=== PATIENT | male | born 1955 | race Caucasian/White ===

== ENCOUNTER 2017-04-18 15:00 | Outpatient (RCR) | payer OTHER | END 2017-04-24 | disposition home or self-care (01) | LOC: PTY 15:00 | DX: M96.1 Postlaminectomy syndrome, not elsewhere classified (principal); M51.36 Other intervertebral disc degeneration, lumbar region ==

== ENCOUNTER 2017-05-14 15:30 | Outpatient (RCR) | payer OTHER | END 2017-05-25 | disposition home or self-care (01) | LOC: PTY 15:30 | DX: M96.1 Postlaminectomy syndrome, not elsewhere classified (principal); M51.36 Other intervertebral disc degeneration, lumbar region | CPT/HCPCS: 97110; 97140; G0283 ==

== ENCOUNTER 2018-12-01 20:15 | Inpatient (IN) | payer OTHER ==
[~2018-12-01] VITALS: Ht 170.2 cm; Wt 92.5 kg
[2018-12-01 20:19] VITALS: BP 113/94
--- NOTE | 2018-12-01 20:19 | NUR ---
ED Nurse Note: PT BROUGHT IN BY 67 FROM HOME DUE TO SOB SINCE THIS MORNING. HX OF HEART FAILURE AND ASTHMA. ALBUTEROL 0.5 GIVEN EN ROUTE. AAO X4, FOLLOWS COMMANDS WITH SOB AT REST. DIMINISHED LUNG SOUNDS AUSCULTATED. SKIN IS PALE.
[2018-12-01] MEDS ORDERED: Morphine Sulfate 4mg/ml Inj (IV USE ONLY) IVP ONE (20:30)
[2018-12-01] MEDS ORDERED: SINGULAIR (20:31)
[2018-12-01] MEDS ORDERED: JENUVIA (20:31)
[2018-12-01] MEDS ORDERED: LASIX (20:31)
[2018-12-01] MEDS ORDERED: METFORMIN (20:31)
--- NOTE | 2018-12-01 20:42 | NUR ---
RESPIRATORY NOTE: Called to ED to place pt on BiPAP. Pt is alert/awake, follows commands. Pt now on BiPAP 16/, back up rate 16, 30%, per MD Shruti order. Pt on a Facial mask, skin intact, no redness/breakdowns noted upon placing on machine. Foam tape applied on pt's nosebridge/cheeks to prevent any mask irritations. No tape applied on chin as pt has a haque. B/S homer. diminished, nonproductive cough. BiPAP plugged into red outlet, alarms on & audible. Pt tolerating BiPAP well, in no apparent distress at this time. Will continue to monitor pt.
--- NOTE | 2018-12-01 20:54 | Emergency Room Report ---
History of Present Illness General Chief Complaint: Dyspnea/Respdistress Source: Patient, EMS Present Illness HPI Patient presents with complaints of shortness of breath Ongoing and worsening over the past several days patient reports several recent hospitalizations He also has a pacemaker and reports history of CHF Patient also reports chronic pain syndrome from previous low back injuries And has been out of his pain medication worsening his symptoms denies any Chest pain denies any vomiting denies any recent travel denies any dysuria frequency Allergies: Coded Allergies: No Known Allergies (Unverified , 03/28/17) Patient History Past Medical History: see triage record Pertinent Family History: none Reviewed Nursing Documentation: PMH: Agreed; PSxH: Agreed Nursing Documentation-PMH Hx Hypertension: Yes Hx Pacemaker: Yes - Replaced two weeks ago Hx Asthma: Yes Hx Diabetes: Yes Review of Systems All Other Systems: negative except mentioned in HPI Physical Exam Vital Signs Date Time Temp Pulse Resp B/P (MAP) Pulse Ox O2 Delivery O2 Flow Rate FiO2 12/01/18 20:09 98.4 90 20 142/88 (106) 94 Room Air 12/01/18 20:38 30 Sp02 EP Interpretation: reviewed, normal General Appearance: mild distress - Short of breath Head: normocephalic, atraumatic Eyes: bilateral eye PERRL, bilateral eye EOMI ENT: hearing grossly normal, normal pharynx, TMs + canals normal, uvula midline Neck: full range of motion, supple, no meningismus, no bony tend Respiratory: no respiratory distress, no retraction, no accessory muscle use, crackles - bilaterally Cardiovascular #1: normal peripheral pulses, regular rate, rhythm, no murmur Gastrointestinal: normal bowel sounds, non tender, soft, no mass, no organomegaly, non-distended, no guarding, no hernia, no pulsatile mass, no rebound Genitourinary: no CVA tenderness Musculoskeletal: swelling - bilaterally pitting Neurologic: oriented x3, responsive, metaphysicist III-XII nml as tested, motor strength/ tone normal, sensory intact Psychiatric: mood/affect normal Skin: other - Edema Lymphatic: normal inspection, no adenopathy Procedures Critical Care Time Critical Care Time 40 minutes for initial critical presentation concerning findings for respiratory arrest cardiac arrest not including any procedural time Medical Decision Making Diagnostic Impression: Primary Impression: Acute CHF ER Course Patient is a fairly complex patient with multiple differential to consideration including but not limited to cardiac cardiopulmonary and vascular emergencies Patient's chest x-ray shows increased pulmonary congestion upon arrival was placed on BiPAP as well given the clinical examination IV diuretics are performed patient is improving and requires further inpatient care Labs Test 12/01/18 20:25 12/01/18 20:45 12/02/18 06:10 12/02/18 14:00 White Blood Count 7.2 K/UL (4.8-10.8) 5.8 K/UL (4.8-10.8) Red Blood Count 3.82 M/UL (4.70-6.10) 3.51 M/UL (4.70-6.10) Hemoglobin 9.4 G/DL (14.2-18.0) 8.5 G/DL (14.2-18.0) Hematocrit 31.5 % (42.0-52.0) 28.8 % (42.0-52.0) Mean Corpuscular Volume 82 FL (80-99) 82 FL (80-99) Mean Corpuscular Hemoglobin 24.7 PG (27.0-31.0) 24.3 PG (27.0-31.0) Mean Corpuscular Hemoglobin Concent 29.9 G/DL (32.0-36.0) 29.6 G/DL (32.0-36.0) Red Cell Distribution Width 17.3 % (11.6-14.8) 18.2 % (11.6-14.8) Platelet Count 276 K/UL (150-450) 235 K/UL (150-450) Mean Platelet Volume 6.0 FL (6.5-10.1) 6.1 FL (6.5-10.1) Neutrophils (%) (Auto) 76.3 % (45.0-75.0) 63.5 % (45.0-75.0) Lymphocytes (%) (Auto) 12.5 % (20.0-45.0) 20.6 % (20.0-45.0) Monocytes (%) (Auto) 6.1 % (1.0-10.0) 8.2 % (1.0-10.0) Eosinophils (%) (Auto) 3.8 % (0.0-3.0) 6.6 % (0.0-3.0) Basophils (%) (Auto) 1.3 % (0.0-2.0) 1.1 % (0.0-2.0) Prothrombin Time 12.4 SEC (9.30-11.50) Prothromb Time International Ratio 1.2 (0.9-1.1) Activated Partial Thromboplast Time 35 SEC (23-33) Sodium Level 137 MMOL/L (136-145) 142 MMOL/L (136-145) Potassium Level 3.8 MMOL/L (3.5-5.1) 3.7 MMOL/L (3.5-5.1) Chloride Level 99 MMOL/L (98-107) 103 MMOL/L (98-107) Carbon Dioxide Level 29 MMOL/L (21-32) 35 MMOL/L (21-32) Anion Gap 9 mmol/L (5-15) 4 mmol/L (5-15) Blood Urea Nitrogen 28 mg/dL (7-18) 28 mg/dL (7-18) Creatinine 1.6 MG/DL (0.55-1.30) 1.7 MG/DL (0.55-1.30) Estimat Glomerular Filtration Rate 43.7 mL/min (>60) 40.8 mL/min (>60) Glucose Level 160 MG/DL (74-106) 139 MG/DL (74-106) Calcium Level 9.3 MG/DL (8.5-10.1) 8.9 MG/DL (8.5-10.1) Total Bilirubin 0.8 MG/DL (0.2-1.0) 0.6 MG/DL (0.2-1.0) Aspartate Amino Transf (AST/SGOT) 21 U/L (15-37) 19 U/L (15-37) Alanine Aminotransferase (ALT/SGPT) 9 U/L (12-78) 10 U/L (12-78) Alkaline Phosphatase 147 U/L (46-116) 125 U/L (46-116) Total Creatine Kinase 160 U/L (26-308) Creatine Kinase MB 2.8 NG/ML (0.0-3.6) Creatine Kinase MB Relative Index 1.7 Troponin I 0.048 ng/mL (0.000-0.056) 0.046 ng/mL (0.000-0.056) 0.028 ng/mL (0.000-0.056) Pro-B-Type Natriuretic Peptide 5679 pg/mL (0-125) Total Protein 7.9 G/DL (6.4-8.2) 6.9 G/DL (6.4-8.2) Albumin 3.9 G/DL (3.4-5.0) 3.3 G/DL (3.4-5.0) Globulin 4.0 g/dL 3.6 g/dL Albumin/Globulin Ratio 1.0 (1.0-2.7) 0.9 (1.0-2.7) Lipase 111 U/L (73-393) Urine Opiates Screen Negative (NEGATIVE) Urine Barbiturates Screen Negative (NEGATIVE) Phencyclidine (PCP) Screen Negative (NEGATIVE) Urine Amphetamines Screen Negative (NEGATIVE) Urine Benzodiazepines Screen Negative (NEGATIVE) Urine Cocaine Screen Negative (NEGATIVE) Urine Marijuana (THC) Screen Negative (NEGATIVE) Triglycerides Level 39 MG/DL (30-150) Cholesterol Level 90 MG/DL (< 200) LDL Cholesterol 48 mg/dL (<100) HDL Cholesterol 35 MG/DL (40-60) Cholesterol/HDL Ratio 2.6 (3.3-4.4) Prostate Specific Antigen 1.02 ng/mL (0.13-4.0) Thyroid Stimulating Hormone (TSH) 1.788 uiU/mL (0.358-3.740) Free Thyroxine 1.18 NG/DL (0.76-1.46) Free Triiodothyronine 2.0 pg/mL (2.3-4.2) Test 12/02/18 21:50 Troponin I 0.027 ng/mL (0.000-0.056) Digoxin Level 0.9 NG/ML (0.5-2.0) EKG Diagnostic Results Rate: normal, other Rhythm: other - paced ST Segments: no acute changes Rhythm Strip Diag. Results EP Interpretation: yes Rate: 60 Rhythm: other - paced, prolonged qrs Chest X-Ray Diagnostic Results Chest X-Ray Diagnostic Results : Chest X-Ray Ordered: Yes # of Views/Limited/Complete: 1 View Indication: Shortness of Breath EP Interpretation: Yes Interpretation: no consolidation, no effusion, other - Pulmonary congestion cardiomegaly Impression: Other - Acute CHF Electronically Signed by: Ali Jamehdor, DO Last Vital Signs Date Time Temp Pulse Resp B/P (MAP) Pulse Ox O2 Delivery O2 Flow Rate FiO2 12/01/18 20:40 30 12/01/18 20:40 97 21 100 Facial 12/01/18 20:19 98.4 113/94 Status: improved Disposition: ADMITTED INPATIENT Condition: Serious Referrals: [facility] (PCP) Magali Bahena DO Dec 01, 2018 20:54
--- NOTE | 2018-12-01 20:55 | NUR ---
ED Nurse Note: COLLECTED BLOOD SPECIMEN THEN SENT.
[2018-12-01 21:10] LABS: BASOPHILS % (AUTO) 1.3 % (0.0-2.0); EOSINOPHILS % (AUTO) 3.8 % (0.0-3.0); HEMATOCRIT 31.5 % (42.0-52.0); HEMOGLOBIN 9.4 G/DL (14.2-18.0); LYMPHOCYTES % (AUTO) 12.5 % (20.0-45.0); MEAN CORPUSCULAR VOLUME 82 FL (80-99); MONOCYTES % (AUTO) 6.1 % (1.0-10.0); NEUTROPHILS % (AUTO) 76.3 % (45.0-75.0); PLATELET COUNT 276 K/UL (150-450); RED BLOOD COUNT 3.82 M/UL (4.70-6.10); RED CELL DISTRIBUTION WIDTH 17.3 % (11.6-14.8); WHITE BLOOD COUNT 7.2 K/UL (4.8-10.8)
[2018-12-01 21:14] LABS: ANION GAP 9 mmol/L (5-15); BLOOD UREA NITROGEN 28 mg/dL (7-18); CALCIUM 9.3 MG/DL (8.5-10.1); CARBON DIOXIDE 29 MMOL/L (21-32); CHLORIDE 99 MMOL/L (98-107); CREATININE 1.6 MG/DL (0.55-1.30); POTASSIUM 3.8 MMOL/L (3.5-5.1); SODIUM 137 MMOL/L (136-145)
[2018-12-01 21:17] LABS: INR 1.2 (0.9-1.1)
--- NOTE | 2018-12-01 21:18 | NUR ---
ED Nurse Note: COLLECTED URINE THNE SENT.
[2018-12-01 21:27] LABS: ALANINE AMINOTRANSFERASE 9 U/L (12-78); ALBUMIN 3.9 G/DL (3.4-5.0); ALKALINE PHOSPHATASE 147 U/L (46-116); ASPARTATE AMINO TRANSFERASE 21 U/L (15-37); BILIRUBIN,TOTAL 0.8 MG/DL (0.2-1.0); CKMB 2.8 NG/ML (0.0-3.6); CREATINE KINASE 160 U/L (26-308)
--- NOTE | 2018-12-01 21:52 | NUR ---
ED Nurse Note: PT TOOK OFF HIS BIPAP AND STATES HE DOES NOT NEED IT AND FEELS UNCOMFORTABLE WEARING THE MASK. RN EXPLAINED TO PT THE REASON OF HIS BIPAP. DR LONDON NOTIFIED. PT REFUSED BIPAP AT THIS TIME.
[2018-12-01 22:05] VITALS: BP 123/75
--- NOTE | 2018-12-01 22:05 | NUR ---
ED Nurse Note: REPORT GIVEN TO AVELINO CELIS OF SDU.
[2018-12-01 22:40] VITALS: BP 132/86
--- NOTE | 2018-12-01 22:40 | NUR ---
NURSE NOTES: Received patient from [facility] Car of ER. patient is AO x4, denies pain at this time. 2 L oxygen via NC, tolerating well. no s/sx of respiratory distress noted at this time. IV site is patent and intact. urinal at bedside. placed on diagnostic cardiac sonographer, currently shows V-paced rhythm. no s/sx of acute cardiac distress noted at this time. Belongings checked and placed at bedside. skin intact, noted healed surgical scar on sacral area. bed in lowest position and locked, siderails up X2, call light within reach. will continue to monitor.
--- NOTE | 2018-12-01 22:53 | NUR ---
NURSE NOTES: left message for MD to obtain admission orders. awaiting call back.
--- NOTE | 2018-12-01 22:54 | NUR ---
NURSE NOTES: unable to obtain medication list from patient at this time. per patient, will be bringing current list of medications in the morning (12/02/18) before noon. MD aware. will endorse to next shift.
--- NOTE | 2018-12-01 22:55 | NUR ---
NURSE NOTES: Received call back from MD regarding admission orders. will proceed with plan of care.
[2018-12-02] VITALS: BP 138/84
[2018-12-02 04:00] VITALS: BP 127/73
[2018-12-02] MEDS ORDERED: OXYCODONE-ACET1 EAC5 ORAL (06:18)
[2018-12-02 06:36] LABS: BASOPHILS % (AUTO) 1.1 % (0.0-2.0); EOSINOPHILS % (AUTO) 6.6 % (0.0-3.0); HEMATOCRIT 28.8 % (42.0-52.0); HEMOGLOBIN 8.5 G/DL (14.2-18.0); LYMPHOCYTES % (AUTO) 20.6 % (20.0-45.0); MEAN CORPUSCULAR VOLUME 82 FL (80-99); MONOCYTES % (AUTO) 8.2 % (1.0-10.0); NEUTROPHILS % (AUTO) 63.5 % (45.0-75.0); PLATELET COUNT 235 K/UL (150-450); RED BLOOD COUNT 3.51 M/UL (4.70-6.10); RED CELL DISTRIBUTION WIDTH 18.2 % (11.6-14.8); WHITE BLOOD COUNT 5.8 K/UL (4.8-10.8)
--- NOTE | 2018-12-02 07:25 | NUR ---
NURSE NOTES: Received bedside report from Leona CELIS. Pt. OOB up in the chair. No sign of distress. On 2LPM via NC. C/O gen. pain and pain medication given by previous shift at present. Pt. a/o x 4. Pleasant and cooperative. Bed in low position, locked. Call light within reach. Will cont. to monitor.
--- NOTE | 2018-12-02 07:27 | NUR ---
HAND-OFF: Report given to LALITA Michelle. patient is in stable condition. endorsed to RN that patient's will be bringing patient's current list of medications. endorsed to RN to follow up with MD once obtained.
[2018-12-02 07:42] LABS: ALANINE AMINOTRANSFERASE 10 U/L (12-78); ALBUMIN 3.3 G/DL (3.4-5.0); ALBUMIN/GLOBULIN RATIO 0.9 (1.0-2.7); ALKALINE PHOSPHATASE 125 U/L (46-116); ANION GAP 4 mmol/L (5-15); ASPARTATE AMINO TRANSFERASE 19 U/L (15-37); BILIRUBIN,TOTAL 0.6 MG/DL (0.2-1.0); BLOOD UREA NITROGEN 28 mg/dL (7-18); CALCIUM 8.9 MG/DL (8.5-10.1); CARBON DIOXIDE 35 MMOL/L (21-32); CHLORIDE 103 MMOL/L (98-107); CHOLESTEROL 90 MG/DL (< 200); CREATININE 1.7 MG/DL (0.55-1.30); HDL CHOLESTEROL 35 MG/DL (40-60); POTASSIUM 3.7 MMOL/L (3.5-5.1); SODIUM 142 MMOL/L (136-145); TRIGLYCERIDES 39 MG/DL (30-150)
[2018-12-02 08:00] VITALS: BP 105/50
[2018-12-02] MEDS: Metoprolol Tartrate 50mg tab ORAL SCH ×2 (09:00→20:44)
[2018-12-02] MEDS ORDERED: Aspirin Baby 81mg ORAL SCH (09:00)
[2018-12-02] MEDS: Spironolactone 25mg tab ORAL SCH (09:41)
[2018-12-02] MEDS: Heparin 5000 units/ml inj SUBQ SCH ×2 (09:47→20:45)
[2018-12-02] MEDS: Wixela 250/50 Inhaler - 60 dose INH SCH ×2 (09:49→18:43)
--- NOTE | 2018-12-02 10:03 | History & Physical ---
History and Physical History & Physicial dict cardiology called Christoph Bonds MD Dec 02, 2018 10:03
--- NOTE | 2018-12-02 10:49 | Diagnostic Imaging Report ---
Indication: Chest pain Technique: One view of the chest Comparison: none Findings: Heart is enlarged. There is bilateral interstitial edema and likely some airspace edema at the lung bases. There is slight blunting of the right costophrenic sulcus. Left hemidiaphragm is obscured There is an transfemoral AICD which is poorly visualized. There are also epicardial pacemaker leads. Impression: Evidence of cardiomegaly with congestive heart failure Suspect bilateral pleural effusions as well
[2018-12-02 12:00] VITALS: BP 115/69
--- NOTE | 2018-12-02 13:09 | NUR ---
CASE MANAGEMENT: INITIAL REVIEW 63 YO M KEITH FROM HOME CC: DYSPNEA PMHx: HTN. PACER. ASTHMA. DM. SI:ACS. CHF EXACERBATION. T 98.4 HR 90 RR 20 B/P 142/88 SATS 94% ON RA BUN 28 CR 1.6 GLU 160 ALT 9 ALP 147 BNP 5679 IS: LASIX IV X1 MORPHINE IV X1 ZOFRAN IV X1 PATIENT ADMITTED TO SDU 12/01/2018 @ 2056 DCP: PATIENT TO BE DISCHARGED TO HOME ONCE MEDICALLY CLEARED. 12/02/2018 SI:ACS. CHF EXACERBATION. T 98 HR 84 RR 21 B/P 115/69 SATS 98% ON 2L/NC CO2 35 BUN 28 CR 1.7 GLU 139 ALT 10 ALP 125 IS: LASIX IV Q12H ALDACTONE PO QD LOPRESSOR PO Q12H SINGULAR PO QPM CXR Impression: Evidence of cardiomegaly with congestive heart failure. Suspect bilateral pleural effusions as well. SDU STATUS DCP: PATIENT TO BE DISCHARGED TO HOME ONCE MEDICALLY CLEARED. PLAN OF CARE: CXR Addendum: 12/02/18 at 1319 by Marycarmen Vega CM [employer]
--- NOTE | 2018-12-02 13:14 | NUR ---
*-* NO INSURANCE INFORMATION IN THE BAR UNBLE TO SEND CLINICALS OR REVIEWS *-*
--- NOTE | 2018-12-02 13:26 | NUR ---
NURSE NOTES: Called Dr. Thomson regarding home medication list and told RN he will call me back. Will cont. to monitor.
[2018-12-02 16:00] VITALS: BP 107/58
[2018-12-02] MEDS ORDERED: Montelukast 10mg tablet ORAL SCH (16:30)
--- NOTE | 2018-12-02 19:15 | History and Physical Report ---
DATE OF ADMISSION: 12/01/2018 HISTORY OF PRESENT ILLNESS: The patient is a pleasant 63-year-old man who comes to the hospital through the emergency department because of increasing shortness of breath and severe back pain. Reports several days of increasing edema and shortness of breath. He was evaluated and found to have acute respiratory failure and pulmonary edema. He was given diuretics and placed on BiPAP. There was some atypical chest pain and troponins were normal. Admission was arranged and I was called due to his insurance. This morning, he is feeling much better and is off BiPAP, not feeling short of breath. PAST MEDICAL HISTORY: Recent pacemaker replacement after two infected pacemakers were removed, type 2 diabetes, chronic systolic heart failure, osteoarthritis of the lumbar spine, moderate intermittent asthma using daily albuterol, nonischemic cardiomyopathy, chronic atrial fibrillation with history of complete heart block, morbid obesity, Perez's esophagitis, neuroendocrine carcinoma status post ablation, tumor in both kidneys with chronic kidney disease, status post resection of liver tumor, recent significant weight loss. ALLERGIES: Adhesive tape and Lyrica. MEDICATIONS: His medication review is pending. His bringing in the list. I reviewed his medication list at [facility] and will order appropriate medications as indicated. He is on Eliquis and noted to me that he takes Patricio-Dur, Singulair, and albuterol. PAST SURGICAL HISTORY: Includes laminectomy, multiple pacemaker implantation, cardiac defibrillator, ablation of bilateral kidney tumors. SOCIAL HISTORY: He does not drink, smoke, or use illicit drugs. REVIEW OF SYSTEMS: Otherwise unremarkable. PHYSICAL EXAMINATION: GENERAL: The patient is alert and responds appropriately. VITAL SIGNS: Normal. Blood pressure is somewhat low. Saturation is normal at this morning on nasal oxygen. SKIN: Warm and dry. NECK: No jugular venous distention. CHEST: Clear. CARDIAC: Rhythm is regular. ABDOMEN: Soft. The pacemaker is in the subcutaneous space in the right lower quadrant. EXTREMITIES: Have 2 to 3+ edema. LABORATORY STUDIES: Anemia with hemoglobin of 8.5, white count and platelets counts are normal. Creatinine 48. PSA and TSH are normal. Toxicology is negative. IMPRESSION: 1. Acute respiratory failure. 2. Congestive heart failure with pulmonary edema. 3. Chronic systolic heart failure, nonischemic by history. 4. Adult-onset diabetes. 5. Chronic asthma. 6. History of neuroendocrine tumor, status post ablation and resection. PLAN: The patient will be seen by Cardiology. Diuretics will be continued. We will add inhaled steroids. BiPAP will be used as needed. Christoph Thomson M.D. DR: Paulette JOB#: [id number] CC: Christoph Thomson M.D.; Fax#: [phone] YESY STOVER M.D. ; FAX#: [phone] KENDRICK GONSALES M.D.; FAX#: [phone]
--- NOTE | 2018-12-02 19:20 | NUR ---
NURSE NOTES: Received patient from LALITA Michelle. patient is sitting in chair, AO X4, denies pain at this time. patient is currently on room air, no s/sx of respiratory distress noted at this time. IV site is patent and intact. bed in lowest position and locked, siderails up X2, call light within reach. will continue to monitor.
--- NOTE | 2018-12-02 19:21 | NUR ---
HAND-OFF: Report given to Leona CELIS. Pt. remain stable.
[2018-12-02 20:00] VITALS: BP 114/68
--- NOTE | 2018-12-02 20:53 | Cardiology Progress Note ---
Assessment/Plan Assessment/Plan [id number] contineu diuretic iv foer another day or so as bp and cr allow he looks good at this time Objective Last 24 Hour Vital Signs Date Time Temp Pulse Resp B/P (MAP) Pulse Ox O2 Delivery O2 Flow Rate FiO2 12/02/18 20:44 87 120/71 12/02/18 20:00 97.5 79 18 114/68 (83) 98 12/02/18 20:00 2.0 12/02/18 20:00 82 12/02/18 18:45 97 Room Air 21 12/02/18 18:45 83 18 97 Room Air 21 12/02/18 18:44 83 18 97 Room Air 21 12/02/18 16:00 97.9 78 22 107/58 (74) 97 12/02/18 16:00 Nasal Cannula 2.0 12/02/18 16:00 2.0 12/02/18 15:50 83 12/02/18 12:00 98.0 84 21 115/69 (84) 98 12/02/18 12:00 2.0 12/02/18 12:00 Nasal Cannula 2.0 12/02/18 11:55 84 12/02/18 09:50 93 18 96 Room Air 21 12/02/18 09:49 92 18 95 Room Air 21 12/02/18 09:48 95 Room Air 21 12/02/18 09:00 97 105/50 12/02/18 08:00 2.0 12/02/18 08:00 Nasal Cannula 2.0 12/02/18 08:00 97.0 97 23 105/50 (68) 97 12/02/18 07:50 92 12/02/18 04:00 95 12/02/18 04:00 2.0 12/02/18 04:00 97.5 93 22 127/73 (91) 96 12/02/18 04:00 Nasal Cannula 2.0 12/02/18 00:00 2.0 12/02/18 00:00 97.3 97 22 138/84 (102) 97 12/02/18 00:00 92 12/02/18 00:00 Nasal Cannula 2.0 12/01/18 23:00 Nasal Cannula 2.0 12/01/18 23:00 Nasal Cannula 2.0 12/01/18 22:40 97.3 96 22 132/86 (101) 96 12/01/18 22:30 98 Nasal Cannula 2.0 28 12/01/18 22:25 98.2 91 16 128/69 94 Nasal Cannula 2.0 12/01/18 22:05 98.4 95 18 123/75 98 Nasal Cannula 2.0 12/01/18 21:14 98.2 Intake and Output 12/01/18 12/02/18 19:00 07:00 Intake Total 550 ml Output Total 1875 ml Balance -1325 ml Intake Oral 550 ml Output Urine Total 1875 ml # Voids 3 Laboratory Tests Test 12/02/18 06:10 12/02/18 14:00 White Blood Count 5.8 K/UL (4.8-10.8) Red Blood Count 3.51 M/UL (4.70-6.10) L Hemoglobin 8.5 G/DL (14.2-18.0) L Hematocrit 28.8 % (42.0-52.0) L Mean Corpuscular Volume 82 FL (80-99) Mean Corpuscular Hemoglobin 24.3 PG (27.0-31.0) L Mean Corpuscular Hemoglobin Concent 29.6 G/DL (32.0-36.0) L Red Cell Distribution Width 18.2 % (11.6-14.8) H Platelet Count 235 K/UL (150-450) Mean Platelet Volume 6.1 FL (6.5-10.1) L Neutrophils (%) (Auto) 63.5 % (45.0-75.0) Lymphocytes (%) (Auto) 20.6 % (20.0-45.0) Monocytes (%) (Auto) 8.2 % (1.0-10.0) Eosinophils (%) (Auto) 6.6 % (0.0-3.0) H Basophils (%) (Auto) 1.1 % (0.0-2.0) Sodium Level 142 MMOL/L (136-145) Potassium Level 3.7 MMOL/L (3.5-5.1) Chloride Level 103 MMOL/L (98-107) Carbon Dioxide Level 35 MMOL/L (21-32) H Anion Gap 4 mmol/L (5-15) L Blood Urea Nitrogen 28 mg/dL (7-18) H Creatinine 1.7 MG/DL (0.55-1.30) H Estimat Glomerular Filtration Rate 40.8 mL/min (>60) Glucose Level 139 MG/DL (74-106) H Calcium Level 8.9 MG/DL (8.5-10.1) Total Bilirubin 0.6 MG/DL (0.2-1.0) Aspartate Amino Transf (AST/SGOT) 19 U/L (15-37) Alanine Aminotransferase (ALT/SGPT) 10 U/L (12-78) L Alkaline Phosphatase 125 U/L (46-116) H Troponin I 0.046 ng/mL (0.000-0.056) 0.028 ng/mL (0.000-0.056) Total Protein 6.9 G/DL (6.4-8.2) Albumin 3.3 G/DL (3.4-5.0) L Globulin 3.6 g/dL Albumin/Globulin Ratio 0.9 (1.0-2.7) L Triglycerides Level 39 MG/DL (30-150) Cholesterol Level 90 MG/DL (< 200) LDL Cholesterol 48 mg/dL (<100) HDL Cholesterol 35 MG/DL (40-60) L Cholesterol/HDL Ratio 2.6 (3.3-4.4) L Prostate Specific Antigen 1.02 ng/mL (0.13-4.0) Free Prostate Specific Antigen Pending Percent Free Prostate Specific Ag Pending Prostate Specific Antigen Total Pending Thyroid Stimulating Hormone (TSH) 1.788 uiU/mL (0.358-3.740) Free Thyroxine 1.18 NG/DL (0.76-1.46) Free Triiodothyronine 2.0 pg/mL (2.3-4.2) L Microbiology Date/Time Source Procedure Growth Status 12/01/18 21:00 Rectum Received Chris Zapata MD Dec 02, 2018 20:53
[2018-12-03] VITALS: BP 104/61
[2018-12-03] MEDS ORDERED: Albuterol/Ipratropium 3ml neb HHN PRN (01:30)
--- NOTE | 2018-12-03 02:15 | Consultation ---
DATE OF CONSULTATION: 12/02/2018 CARDIOLOGY CONSULTATION CONSULTING PHYSICIAN: Chris Zapata M.D. REFERRING PHYSICIAN: Christoph Thomson M.D. REASON FOR REFERRAL: Shortness of breath. HISTORY OF PRESENT ILLNESS: This is a middle-aged gentleman, who is unfortunate with multiple medical problems. The patient is followed by Dr. Rivera on usual basis, who has been out-of-town at this time. The patient with recent hospitalization discharged from [facility], but admitted to the hospital because of several days of increasing shortness of breath, cough, wheezing, leg swelling, dyspnea on exertion, no PND, has two pillow usage, occasional dizziness, and lightheadedness. No heart pounding or palpitations. The patient has extensive history of medical problems including recent syncope secondary to severe symptomatic hypoglycemia recently secondary to glipizide as well as aspiration pneumonia; acute cystitis; hematuria; chronic prostatitis; intracardiac defibrillator implantation; toxic metabolic encephalopathy; diabetes mellitus; hyponatremia; syncope; nonischemic cardiomyopathy with combined systolic and diastolic heart failure, ejection fraction of 25% complicated by complete heart block, status post Bi-V ICD complicated by infection, status post removal in 2017, status post mitral regurg, pacemaker implantation, deactivated in October 2018, implantation of a new dual ICD from the groin; chronic atrial fibrillation on anticoagulation with Eliquis; MRSA colonization; history of asthma; moderate to severe low back pain; history of thoracolumbar degenerative joint disease and stenosis as well as chronic constipation; chronic kidney disease, stage 3; anemia of chronic disease with an acute component; and history of neuroendocrine tumor, status post left lobe hepatectomy with known recurrent history of renal cell carcinoma. ALLERGIES: He is not allergic to any medications. SOCIAL HISTORY: He does not smoke or drink alcoholic beverages. REVIEW OF SYSTEMS: GASTROINTESTINAL: He has had chronic constipation. GENITOURINARY: Negative. PULMONARY: Positive coughing and wheezing. CONSTITUTIONAL: No fevers, chills, or night sweats. NEUROLOGICAL: Negative. PHYSICAL EXAMINATION: GENERAL: Shows to be a middle-aged gentleman, who is walking around his room. NECK: Supple. No jugular venous distention. LUNGS: There are end-expiratory wheezes with few crackles noted in the bases. CARDIAC: S1 is normal. S2 is normal. Regular rate and rhythm. No heaves, thrills, or gallops are noted. ABDOMEN: Soft and nontender. Positive bowel sounds. EXTREMITIES: A 1+ to 2+ edema on the right side and 2+ edema on the left side. LABORATORY VALUES AND DIAGNOSTIC DATA: White count 5.8, hemoglobin 8.5, and platelet count of 235,000. Sodium is 142, potassium 3.7, chloride 103, bicarb of 35, BUN of 28, creatinine 1.7, and glucose of 139. Two sets of cardiac enzymes are negative. Alkaline phosphatase is 125. Total protein 6.9. Albumin of 3.6. TSH of 1.78. Coags, INR 1.2 and PTT of 35. Tox screen was negative. The patient had some imaging. A chest x-ray performed in the emergency room here at [place] shows evidence of cardiomegaly with congestive heart failure, bilateral pleural effusions were also suspected as well enlarged cardiac silhouette, and transfemoral ICD is poorly visualized. His telemetry data shows sinus with V-pacing and his electrocardiogram also shows sinus with V-pacing. ASSESSMENT AND PLAN: 1. Respiratory insufficiency with acute on chronic congestive heart failure and asthma. 2. Asthma with exacerbation. 3. Diabetes mellitus. 4. Neuroendocrine tumor history. 5. History of intracardiac defibrillator placement. 6. Urinary tract infection history. 7. Nonischemic cardiomyopathy. 8. History of syncope. Dr. Thomson, this patient was seen in cardiac consultation. He actually looks relatively well at the present time walking around the room without any significant oxygen. He has had significant improvement since admission, probably owing to the fact that he has had some diuretics to which he responded as well as some breathing treatment to which he has responded as well. We will continue him on the dose of diuretics that he has been getting through intravenous Lasix, possibly for another day or two and then resume his chronic doses. He is usually on a very low dose apparently based on his recent discharge from [facility] of Lasix of only 20 mg and likely inadequate in light of the fact that he has got some renal insufficiency as well. His other medications including his Coreg, apixaban, and digoxin should be continued. A digoxin level will be ordered for tomorrow morning and I believe he was recently started on Aldactone, but not clear to me if that has been continued or not. I will follow the patient along with you. His laboratory values do not show evidence of hyperkalemia at this time necessitating discontinuation of Aldactone, but I think this diuretic should be continued. Chris Zapata M.D. DR: Brennen JOB#: [id number] CC:
[2018-12-03 04:00] VITALS: BP 120/65
[2018-12-03] MEDS: Wixela 250/50 Inhaler - 60 dose INH SCH (07:01)
--- NOTE | 2018-12-03 07:15 | NUR ---
HAND-OFF: Report given to LALITA Michelle. patient is in stable condition.
--- NOTE | 2018-12-03 07:19 | NUR ---
NURSE NOTES: Received bedside report from Leona CELIS. Pt. OOB up in the chair. No sign of distress. Pre-medicated with pain medication prior shift. IV site at right AC #20g. in placed patent/intact. Call light within reach. Will cont. to monitor.
[2018-12-03 08:00] VITALS: BP 103/61
--- NOTE | 2018-12-03 08:50 | Pulmonology Progress Note ---
Assessment/Plan Assessment/Plan 1. Acute respiratory failure. 2. Congestive heart failure with pulmonary edema. 3. Chronic systolic heart failure, nonischemic by history. 4. Adult-onset diabetes. 5. Chronic asthma. 6. History of neuroendocrine tumor, status post ablation and resection. Improved appreciate cardiology help echo pdg possible dc today Subjective Constitutional: Reports: no symptoms Respiratory: Reports: dry cough, shortness of breath Allergies: Coded Allergies: No Known Allergies (Unverified , 03/28/17) Objective Last 24 Hour Vital Signs Date Time Temp Pulse Resp B/P (MAP) Pulse Ox O2 Delivery O2 Flow Rate FiO2 12/03/18 07:01 87 16 98 12/03/18 07:01 86 16 98 Room Air 12/03/18 06:55 97 Room Air 12/03/18 04:00 2.0 12/03/18 04:00 Nasal Cannula 2.0 12/03/18 04:00 98.9 80 18 120/65 (83) 100 12/03/18 03:26 81 12/03/18 02:11 75 18 99 Nasal Cannula 2.0 28 12/03/18 02:03 76 17 98 Room Air 12/03/18 00:00 98.0 70 18 104/61 (75) 98 12/03/18 00:00 Nasal Cannula 2.0 12/02/18 23:27 70 12/02/18 20:44 87 120/71 12/02/18 20:00 Nasal Cannula 2.0 12/02/18 20:00 97.5 79 18 114/68 (83) 98 12/02/18 20:00 2.0 12/02/18 20:00 82 12/02/18 18:45 97 Room Air 21 12/02/18 18:45 83 18 97 Room Air 21 12/02/18 18:44 83 18 97 Room Air 21 12/02/18 16:00 97.9 78 22 107/58 (74) 97 12/02/18 16:00 Nasal Cannula 2.0 12/02/18 16:00 2.0 12/02/18 15:50 83 12/02/18 12:00 98.0 84 21 115/69 (84) 98 12/02/18 12:00 2.0 12/02/18 12:00 Nasal Cannula 2.0 12/02/18 11:55 84 12/02/18 09:50 93 18 96 Room Air 21 12/02/18 09:49 92 18 95 Room Air 21 12/02/18 09:48 95 Room Air 21 12/02/18 09:00 97 105/50 Intake and Output 12/02/18 12/03/18 19:00 07:00 Intake Total 650 ml 500 ml Output Total 1200 ml 950 ml Balance -550 ml -450 ml Intake Oral 650 ml 500 ml Output Urine Total 1200 ml 950 ml General Appearance: no acute distress HEENT: normocephalic Respiratory/Chest: lungs clear, decreased breath sounds Cardiovascular: normal rate, regular rhythm Extremities: other - 2+ Microbiology Date/Time Source Procedure Growth Status 12/01/18 20:40 Blood Blood Culture - Preliminary NO GROWTH AFTER 24 HOURS Resulted 12/01/18 20:25 Blood Blood Culture - Preliminary NO GROWTH AFTER 24 HOURS Resulted 12/01/18 21:00 Rectum Received Laboratory Tests 12/02/18 14:00: Troponin I 0.028 12/02/18 21:50: Troponin I 0.027, Digoxin Level 0.9 Current Medications Medications (Trade) Dose Ordered Sig/Meng Route PRN Reason Start Time Stop Time Status Last Admin Dose Admin Acetaminophen (Tylenol) 650 mg Q4H PRN ORAL Mild Pain/Temp > 100.5 12/01/18 23:00 12/31/18 22:59 Albuterol/ Ipratropium (Albuterol/ Ipratropium) 3 ml Q4H PRN HHN Shortness of Breath 12/03/18 01:30 12/08/18 01:29 12/03/18 02:00 Apixaban (Eliquis) 5 mg BID ORAL 12/03/18 09:00 01/02/19 08:59 Atorvastatin Calcium (Lipitor) 10 mg BEDTIME ORAL 12/02/18 21:00 01/01/19 20:59 12/02/18 21:51 Carvedilol (Coreg) 6.25 mg EVERY 12 HOURS ORAL 12/03/18 09:00 01/02/19 08:59 Digoxin (Lanoxin) 0.125 mg QOD ORAL 12/03/18 09:00 01/02/19 08:59 Furosemide (Lasix) 40 mg EVERY 12 HOURS IV 12/02/18 09:00 01/01/19 08:59 12/02/18 20:44 Montelukast Sodium (Singulair) 10 mg QPM ORAL 12/02/18 16:30 01/01/19 16:29 12/02/18 17:09 Oxycodone/ Acetaminophen (Percocet 10/325) 1 tab Q6HR PRN ORAL pain 12/02/18 01:00 12/09/18 00:59 12/03/18 06:08 Salmeterol Xinafoate/ Fluticasone (Advair 250/50 Diskus) 1 puffs BID INH 12/02/18 09:00 01/01/19 08:59 12/03/18 07:01 Spironolactone (Aldactone) 25 mg DAILY ORAL 12/02/18 09:00 01/01/19 08:59 12/02/18 09:41 Christoph Thomson MD Dec 03, 2018 08:50
[2018-12-03] MEDS ORDERED: Eliquis 5mg tablet ORAL SCH (09:00)
[2018-12-03] MEDS ORDERED: Digoxin 0.125mg tab ORAL SCH (09:00)
[2018-12-03] MEDS ORDERED: Carvedilol 6.25mg Tab ORAL SCH (09:00)
[2018-12-03] MEDS: Spironolactone 25mg tab ORAL SCH (09:18)
--- NOTE | 2018-12-03 10:50 | NUR ---
TEAM ASSISTANTRESEARCH TECH SI:ACUTE RESPIRATORY FAILURE . ACUTE ON CHRONIC CHF VS: BP 103/61, P 87, T 97.7, RR 16, SpO2 97 on 2.0 NC RBC 3.51, H&H 8.5/28.8, BUN 28, CR 1.7, GLUCOSE 139, ALT 10, ALP 125 IS:ALDACTONE 25mg DIGOXIN 0.125mg ELIQUIS 5mg LASIX 40mg IV ADVAIR INH OXYCODONE 1tab ALBUTEROL 3ml HHN PLAN: CONT. LASIX IV SDU STATUS
[2018-12-03 12:00] VITALS: BP 101/55
[2018-12-03] MEDS ORDERED: ELIQUIS5 MG ORAL (14:35)
[2018-12-03] MEDS ORDERED: MONTELUKAST SOD10 MG ORAL (14:35)
[2018-12-03] MEDS ORDERED: Digoxin ORAL (14:35)
[2018-12-03] MEDS ORDERED: ADVAIR 250/501 PUFFS INH (14:35)
[2018-12-03] MEDS ORDERED: FUROSEMIDE40 MG ORAL (14:35)
[2018-12-03] MEDS ORDERED: COREG6.25 MG ORAL (14:35)
[2018-12-03] MEDS ORDERED: LIPITOR10 MG ORAL (14:35)
[2018-12-03] MEDS ORDERED: SPIRONOLACTONE25 MG ORAL (14:35)
--- NOTE | 2018-12-03 15:25 | NUR ---
Discharge: Patient is being discharged to home from medical care. Awake, alert and oriented x4. After care instructions were given. Patient verbalized understanding of after care instructions upon discharge. All medical devices such as IV, equipment monitor phototypesetting and ID band were removed. Patient ambulated out with all personal belongings with steady gait. Pt. remain stable.
--- NOTE | 2018-12-04 10:31 | Discharge Summary ---
Discharge Summary Discharge Summary _ DATE OF ADMISSION: 12/01/2018 DATE OF DISCHARGE: 12/03/2018 DISCHARGED BY: Dr. Christoph Thomson CONSULTANTS: Dr. Chris Zapata BRIEF HOSPITAL COURSE: Patient is a 63-year-old male, who was brought to the hospital through the emergency department because of increased shortness of breath and severe back pain. He reported several days of increased edema and shortness of breath. 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 On evaluation at the ED, blood work did not show any leukocytosis. Hemoglobin 9 , hematocrit 31. Electrolytes were normal. BUN was elevated to 28 and creatinine 1.6. Troponin 0.048. ProBNP 5679. Urine toxicology screen was negative. Chest x-ray showed evidence of cardiomegaly with congestive heart failure. He was found to have acute respiratory failure and pulmonary edema. He was given diuretics and was placed on BiPAP. He had some atypical chest pain. He was then admitted for evaluation of acute respiratory failure and congestive heart failure with pulmonary edema. He was continued on diuretics. He was continued on nebulizer treatment. Director Operations Broadcast was consulted. Cardiac enzymes were monitored. He was continued on Coreg, apixaban and digoxin. He was continued on Aldactone. Lipid panel was acceptable. He was continued on Lipitor 10 mg nightly. Telemetry data showed sinus with V pacing. Electrocardiogram also showed sinus with V pacing. TSH was normal. Cardiac enzymes were negative. Digoxin level was normal. Echocardiogram was done. (Official result still pending) Patient was saturating well and was breathing better. He was eventually discharged home. FINAL DIAGNOSES: Acute respiratory failure Acute congestive heart failure with pulmonary edema Chronic systolic heart failure, nonischemic by history Adult onset diabetes Chronic asthma History of neuroendocrine tumor, status post ablation and resection Nonischemic cardiomyopathy History of intracardiac defibrillator placement DISPOSITION: Patient was discharged home. DISCHARGE MEDICATIONS: Refer to Discharge Medication List. DISCHARGE INSTRUCTIONS: Follow-up in a week. I have been assigned to complete a discharge summary on this account, I was not involved with the patient's management.--ABEL Pringle Jacqueline Robles NP Dec 04, 2018 10:31
--- NOTE | 2018-12-04 15:46 | Cardiology Report ---
APPROVED REPORT EXAM: Two-dimensional and M-mode echocardiogram with Doppler and color Doppler. INDICATION Congestive Heart Failure M-Mode DIMENSIONS IVSd1.0 (0.7-1.1cm)Left Atrium (MM)4.9 (1.6-4.0cm) LVDd6.4 (3.5-5.6cm)Aortic Root2.8 (2.0-3.7cm) PWd0.9 (0.7-1.1cm)Aortic Cusp Exc.1.7 (1.5-2.0cm) IVSs1.6 cm LVDs5.4 (2.5-4.0cm) PWs1.2 cm Mild left ventricular enlargement. Global left ventricular hypokinesia, ischemic cardiomayopathy can not be excluded. Left ventricular ejection fraction is estimated to be 20-25%. No evidence of left ventricular hypertrophy. Anterior Echo-free space, may be due to pericardial fat or effusion. Pleural effusion present. Mild left atrial enlargement. Right cardiac chamber sizes are within normal limits. Aortic valve calcification with normal cusp excursion. Mildly thickened mitral valve leaflets with normal excursion. Mild mitral annulus and aortic root calcification. Pulmonic valve not well visualized. IVC at normal size with physiologic collapse. A color flow and spectral Doppler study was performed and revealed: Trace aortic insufficiency. Mitral inflow velocities indicates possible pseudo normalization pattern implying moderately elevated left atrial pressure (Grade II ). Mild to moderate mitral regurgitation. Mild tricuspid regurgitation. Tricuspid systolic velocities suggests peak right ventricular systolic pressure of 41mmHg,consistent with mild pulmonary HTN.
--- NOTE | 2018-12-06 13:34 | NUR ---
CASE MANAGEMENT: CM review and clinical information (face sheet/ ER MD notes/ H&P/DC summary) faxed to [facility] @ [phone]
== END 2018-12-03 15:25 | disposition home or self-care (01) | DRG 291 ==
LOC: EDBD 20:15 → EMR 20:20 → 2W 20:57 → EDBEDREQ 21:51 → 2W 22:41
DX: I50.23 Acute on chronic systolic (congestive) heart failure (principal); J96.00 Acute respiratory failure, unspecified whether with hypoxia or hypercapnia; J45.901 Unspecified asthma with (acute) exacerbation; I42.8 Other cardiomyopathies; E11.9 Type 2 diabetes mellitus without complications; Z95.810 Presence of automatic (implantable) cardiac defibrillator; Z85.528 Personal history of other malignant neoplasm of kidney; I25.5 Ischemic cardiomyopathy; M47.896 Other spondylosis, lumbar region; I48.2 Chronic atrial fibrillation
CPT/HCPCS: 36415; 71045; 80053; 80061; 80162; 80307; 82550; 82553; 83690; 83880; 84153; 84154; 84439; 84443; 84481; 84484; 85025; 85610; 85730; 87040; 87081; 93005; 93306; 94640; 94660; 94664; 96374; 96375; 99291; J2405; J7620